=== PATIENT | male | born 1980 | race Caucasian/White ===

== ENCOUNTER 2018-01-15 08:44 | Inpatient (IN) | payer MEDICAID, OTHER, SELFPAY ==
[~2018-01-15] VITALS: Ht 185.4 cm; Wt 101.6 kg
[~2018-01-15 08:44] MED LIST: NOCURR
[2018-01-15] MEDS ORDERED: HALOPERIDOL LACTATE 5 MG/ML VIAL IM ONE (10:00)
[2018-01-15] MEDS ORDERED: ZOLPIDEM TARTRATE 10 MG TABLET PO PRN (10:00)
[2018-01-15] MEDS ORDERED: DiphenhydrAMINE HCL 50 MG/ML VIAL IM ONE (10:00)
[2018-01-15] MEDS ORDERED: LORazepam 2 MG/ML VIAL IM ONE (10:00)
[2018-01-15 10:52] LABS: BASOPHILS % (AUTO) 0.4 % (0.0-2.0); EOSINOPHILS % (AUTO) 0.3 % (1.0-6.0); HEMATOCRIT 44.7 % (41-53); HEMOGLOBIN 15.9 g/dL (13.5-17.5); LYMPHOCYTES # (AUTO) 1.9 K/uL (1.0-4.8); LYMPHOCYTES % (AUTO) 16.5 % (22.0-44.0); MEAN CORPUSCULAR HEMOGLOBIN 33.3 pg (26.0-34.0); MEAN CORPUSCULAR HGB CONC 35.6 G/dL (31.0-37.0); MEAN CORPUSCULAR VOLUME 94 fL (80-100); MONOCYTES # (AUTO) 1.2 K/uL (0.1-1.0); MONOCYTES % (AUTO) 10.6 % (2.0-9.0); NEUTROPHILS # (AUTO) 8.4 K/uL (1.8-7.7); NEUTROPHILS % (AUTO) 72.2 % (40.0-70.0); PLATELET COUNT (AUTO) 279 K/uL (150-450); RED BLOOD CELL COUNT(AUTO) 4.77 MIL/uL (4.50-5.90); RED CELL DISTRIBUTION WIDTH 13.8 % (11.5-14.5)
[2018-01-15 11:02] LABS: ANION GAP 8 mmol/L (8-16); CALCIUM, TOTAL 8.7 mg/dL (8.8-10.5); CARBON DIOXIDE 28 mmol/L (22-29); CHLORIDE 103 mmol/L (98-107); CREATININE 1.06 mg/dL (0.60-1.30); GLOMERULAR FILTR. RATE CALC > 60 mL/min (>60); GLUCOSE,RANDOM 101 mg/dL (70-110); POTASSIUM 4.2 mmol/L (3.5-5.1); SODIUM SERUM 139 mmol/L (136-145); UREA NITROGEN, BLOOD 13 mg/dL (7-18)
[2018-01-15 11:07] LABS: ALANINE AMINOTRANSFERASE 42 U/L (12-78); ALKALINE PHOSPHATASE 71 U/L (46-116); ASPARTATE AMINOTRANSFERASE 43 U/L (15-37); BILIRUBIN,TOTAL 1.4 mg/dL (0.1-1.0); TOTAL PROTEIN, SERUM 7.5 g/dL (6.4-8.2)
[2018-01-15 13:51] LABS: CHOL/HDL RATIO 2.8 (4.2-7.3); CHOLESTEROL 172 mg/dL (131-200); HDL CHOLESTEROL 62 mg/dL (40-60); LDL CHOL (CALC.) 103 mg/dL (0-130); TRIGLYCERIDES 37 mg/dL (15-150)
[2018-01-15 15:41] VITALS: BP 95/60
[2018-01-15 16:38] VITALS: BP 108/73
[2018-01-16 08:05] VITALS: BP 134/84
[2018-01-16] MEDS: RisperiDONE 2 MG TABLET PO SCH ×2 (13:20→16:41)
[2018-01-16 16:21] VITALS: BP 119/69
[2018-01-16] MEDS: LORazepam 2 MG TABLET PO PRN (16:42)
[2018-01-16] MEDS: HALOPERIDOL 5 MG TABLET PO PRN (16:42)
[2018-01-17 06:12] VITALS: BP 115/70
[2018-01-17 08:14] VITALS: BP 113/78
[2018-01-17] MEDS: RisperiDONE 2 MG TABLET PO SCH ×2 (08:51→16:30)
[2018-01-17] MEDS: LORazepam 2 MG TABLET PO PRN ×2 (08:51→16:30)
[2018-01-17] MEDS: HALOPERIDOL 5 MG TABLET PO PRN ×2 (09:21→16:30)
[2018-01-17 16:11] VITALS: BP 134/86
[2018-01-18 00:57] VITALS: BP 128/78
[2018-01-18 08:02] VITALS: BP 110/63
[2018-01-18] MEDS: RisperiDONE 2 MG TABLET PO SCH ×2 (08:21→16:59)
[2018-01-18 16:04] VITALS: BP_SYST 110; BP_SYST 119; BP_DIAS 63; BP_DIAS 83
[2018-01-19 06:23] VITALS: BP 130/94
[2018-01-19 08:24] VITALS: BP 121/79
[2018-01-19] MEDS: RisperiDONE 2 MG TABLET PO SCH (09:29)
[2018-01-19] MEDS: LORazepam 2 MG TABLET PO PRN (09:29)
[2018-01-19] MEDS: HALOPERIDOL 5 MG TABLET PO PRN (09:29)
[2018-01-19] MEDS ORDERED: RISP2TAB76 PO (09:44)
[2018-01-19 16:00] VITALS: BP 110/85
== END 2018-01-19 15:55 | disposition home or self-care (01) | DRG 750 ==
LOC: EMS 08:47 → B3A 12:01
PROVIDERS: ATTEND Psychiatry & Neurology Child & Adolescent Psychiatry
DX: F25.0 Schizoaffective disorder, bipolar type (principal); Z91.19 Patient's noncompliance with other medical treatment and regimen; R45.851 Suicidal ideations; F41.9 Anxiety disorder, unspecified; F17.210 Nicotine dependence, cigarettes, uncomplicated; R45.4 Irritability and anger; R45.1 Restlessness and agitation; F12.90 Cannabis use, unspecified, uncomplicated; Z79.899 Other long term (current) drug therapy; Z59.0 Homelessness
CPT/HCPCS: 96372; 99285; G0480; J1200; J1630; J2060

== ENCOUNTER 2018-09-24 14:46 | Inpatient (IN) | payer MEDICAID, OTHER ==
[~2018-09-24] VITALS: Ht 177.8 cm; Wt 87.1 kg
[~2018-09-24 14:46] MED LIST changes: +ARIP10TA8 PO; +ARIP15TA2 PO; +DIVA500T52 PO; +NALT50TA PO; +NALT50TA6 PO; -NOCURR
[2018-09-24] MEDS ORDERED: LORazepam 2 MG/ML VIAL IM ONE (15:15)
[2018-09-24] MEDS ORDERED: HALOPERIDOL LACTATE 5 MG/ML VIAL IM ONE (15:15)
[2018-09-24] MEDS ORDERED: DiphenhydrAMINE HCL 50 MG/ML VIAL IM ONE (15:15)
[2018-09-24 16:56] LABS: BASOPHILS % (AUTO) 0.5 % (0.0-2.0); EOSINOPHILS % (AUTO) 0.5 % (1.0-6.0); HEMATOCRIT 39.9 % (41-53); HEMOGLOBIN 13.7 g/dL (13.5-17.5); LYMPHOCYTES # (AUTO) 1.2 K/uL (1.0-4.8); LYMPHOCYTES % (AUTO) 13.2 % (22.0-44.0); MEAN CORPUSCULAR HEMOGLOBIN 33.1 pg (26.0-34.0); MEAN CORPUSCULAR HGB CONC 34.4 G/dL (31.0-37.0); MEAN CORPUSCULAR VOLUME 96 fL (80-100); MONOCYTES # (AUTO) 1.3 K/uL (0.1-1.0); NEUTROPHILS # (AUTO) 6.3 K/uL (1.8-7.7); NEUTROPHILS % (AUTO) 70.8 % (40.0-70.0); PLATELET COUNT (AUTO) 289 K/uL (150-450); RED BLOOD CELL COUNT(AUTO) 4.15 MIL/uL (4.50-5.90); RED CELL DISTRIBUTION WIDTH 12.9 % (11.5-14.5)
[2018-09-24 17:11] LABS: ANION GAP 11 mmol/L (8-16); CALCIUM, TOTAL 8.7 mg/dL (8.8-10.5); CARBON DIOXIDE 27 mmol/L (22-29); CHLORIDE 98 mmol/L (98-107); CREATININE 0.93 mg/dL (0.60-1.30); GLOMERULAR FILTR. RATE CALC > 60 mL/min (>60); GLUCOSE,RANDOM 93 mg/dL (70-110); POTASSIUM 3.7 mmol/L (3.5-5.1); SODIUM SERUM 136 mmol/L (136-145); UREA NITROGEN, BLOOD 22 mg/dL (7-18)
[2018-09-24 17:17] LABS: ALANINE AMINOTRANSFERASE 59 U/L (12-78); ALBUMIN 3.7 g/dL (3.4-5.0); ALKALINE PHOSPHATASE 81 U/L (46-116); ASPARTATE AMINOTRANSFERASE 62 U/L (15-37); BILIRUBIN,TOTAL 0.9 mg/dL (0.1-1.0); TOTAL PROTEIN, SERUM 6.9 g/dL (6.4-8.2)
[2018-09-24 21:05] VITALS: BP 113/88
[2018-09-24] MEDS ORDERED: ACETAMINOPHEN 325 MG TABLET PO PRN (21:30)
[2018-09-24] MEDS ORDERED: CloNIDine HCL 0.1 MG TABLET PO PRN (21:30)
[2018-09-24] MEDS ORDERED: IBUPROFEN 400 MG TABLET PO PRN (21:30)
[2018-09-24] MEDS ORDERED: LOPERAMIDE HCL 2 MG CAPSULE PO PRN (21:30)
[2018-09-24] MEDS ORDERED: PETROLATUM,WHITE 71 GM JELLY TP PRN (21:30)
[2018-09-24] MEDS ORDERED: DOCUSATE SODIUM 100 MG CAPSULE PO PRN (21:30)
[2018-09-24] MEDS ORDERED: GuaiFENesin/D-METHORPHAN [SUGAR-FREE] 200-20MG/10 ML SYRUP UDCUP PO PRN (21:30)
[2018-09-24] MEDS ORDERED: NICOTINE 14 MG/24 HOUR PATCH TD PRN (21:30)
[2018-09-24] MEDS ORDERED: ALBUTEROL SULFATE HFA 90 MCG/PUFF 8 GM INHALER IH PRN (21:30)
[2018-09-24] MEDS ORDERED: ONDANSETRON HCL 4 MG TABLET PO PRN (21:30)
[2018-09-24] MEDS ORDERED: MAG HYDROX/AL HYDROX/SIMETH ES 30 ML SUSPENSION UDCUP PO PRN (21:30)
[2018-09-24] MEDS ORDERED: MAGNESIUM HYDROXIDE SUSPENSION 30 ML UDCUP PO PRN (21:30)
[2018-09-25 03:01] VITALS: BP 123/83
[2018-09-25] MEDS ORDERED: DiphenhydrAMINE HCL 50 MG/ML VIAL IM ONE (05:45)
[2018-09-25] MEDS ORDERED: LORazepam 2 MG/ML VIAL IM ONE (05:45)
[2018-09-25] MEDS ORDERED: HALOPERIDOL LACTATE 5 MG/ML VIAL IM ONE (05:45)
[2018-09-25] MEDS: ARIPiprazole 10 MG TABLET PO SCH (15:21)
[2018-09-25] MEDS: NALTREXONE HCL 50 MG TABLET PO SCH (15:21)
[2018-09-25] MEDS: HALOPERIDOL 5 MG TABLET PO PRN (16:53)
[2018-09-25] MEDS: LORazepam 2 MG TABLET PO PRN (16:53)
[2018-09-25] MEDS: DIVALPROEX SODIUM 500 MG ER TABLET PO SCH (21:28)
[2018-09-26 01:04] VITALS: BP 113/83
[2018-09-26] MEDS: ZOLPIDEM TARTRATE 10 MG TABLET PO PRN ×2 (01:25→20:19)
[2018-09-26] MEDS: LORazepam 2 MG TABLET PO PRN ×3 (01:25→20:19)
[2018-09-26] MEDS: HALOPERIDOL 5 MG TABLET PO PRN (01:25)
[2018-09-26 08:03] VITALS: BP 119/67
[2018-09-26] MEDS: NALTREXONE HCL 50 MG TABLET PO SCH (08:54)
[2018-09-26] MEDS: ARIPiprazole 10 MG TABLET PO SCH (08:54)
[2018-09-26] MEDS ORDERED: HALOPERIDOL LACTATE 5 MG/ML VIAL ONE (15:32)
[2018-09-26] MEDS ORDERED: LORazepam 2 MG/ML VIAL ONE (15:32)
[2018-09-26] MEDS ORDERED: DiphenhydrAMINE HCL 50 MG/ML VIAL ONE (15:32)
[2018-09-26] MEDS ORDERED: DiphenhydrAMINE HCL 50 MG/ML VIAL IM ONE (15:45)
[2018-09-26] MEDS ORDERED: HALOPERIDOL LACTATE 5 MG/ML VIAL IM ONE (15:45)
[2018-09-26] MEDS ORDERED: LORazepam 2 MG/ML VIAL IM ONE (15:45)
[2018-09-26] MEDS: DIVALPROEX SODIUM 500 MG ER TABLET PO SCH (20:17)
[2018-09-27] MEDS: HALOPERIDOL 5 MG TABLET PO PRN ×3 (05:24→16:18)
[2018-09-27] MEDS: LORazepam 2 MG TABLET PO PRN ×3 (05:24→16:18)
[2018-09-27] MEDS: ARIPiprazole 10 MG TABLET PO SCH (08:43)
[2018-09-27] MEDS: NALTREXONE HCL 50 MG TABLET PO SCH (08:43)
[2018-09-27 08:58] VITALS: BP 133/68
[2018-09-27] MEDS ORDERED: DiphenhydrAMINE HCL 50 MG/ML VIAL IM ONE (10:15)
[2018-09-27] MEDS ORDERED: LORazepam 2 MG/ML VIAL IM ONE (10:15)
[2018-09-27] MEDS ORDERED: HALOPERIDOL LACTATE 5 MG/ML VIAL IM ONE (10:15)
[2018-09-27] MEDS: DIVALPROEX SODIUM 500 MG ER TABLET PO SCH (20:28)
[2018-09-28 00:22] VITALS: BP 125/79
[2018-09-28 08:23] VITALS: BP 132/85
[2018-09-28] MEDS: LORazepam 2 MG TABLET PO PRN (08:40)
[2018-09-28] MEDS: DIVALPROEX SODIUM 500 MG ER TABLET PO SCH ×2 (08:40→21:00)
[2018-09-28] MEDS: HALOPERIDOL 5 MG TABLET PO PRN (08:40)
[2018-09-28] MEDS: NALTREXONE HCL 50 MG TABLET PO SCH (08:40)
[2018-09-28] MEDS: ARIPiprazole 15 MG TABLET PO SCH (08:40)
[2018-09-28] MEDS ORDERED: LORazepam 2 MG/ML VIAL ONE (09:19)
[2018-09-28] MEDS ORDERED: DiphenhydrAMINE HCL 50 MG/ML VIAL ONE (09:20)
[2018-09-28] MEDS ORDERED: HALOPERIDOL LACTATE 5 MG/ML VIAL ONE (09:20)
[2018-09-28] MEDS ORDERED: LORazepam 2 MG/ML VIAL IM ONE (09:45)
[2018-09-28] MEDS ORDERED: DiphenhydrAMINE HCL 50 MG/ML VIAL IM ONE (09:45)
[2018-09-28] MEDS ORDERED: HALOPERIDOL LACTATE 5 MG/ML VIAL IM ONE (09:45)
[2018-09-29 08:17] VITALS: BP 129/81
[2018-09-29] MEDS: ARIPiprazole 15 MG TABLET PO SCH (08:57)
[2018-09-29] MEDS: DIVALPROEX SODIUM 500 MG ER TABLET PO SCH ×2 (08:58→20:25)
[2018-09-29] MEDS: NALTREXONE HCL 50 MG TABLET PO SCH (08:58)
[2018-09-29 16:00] VITALS: BP 131/81
[2018-09-29] MEDS: HALOPERIDOL 5 MG TABLET PO PRN (16:28)
[2018-09-29] MEDS: LORazepam 2 MG TABLET PO PRN (16:28)
[2018-09-30 06:19] VITALS: BP 117/65
[2018-09-30 08:17] VITALS: BP 121/68
[2018-09-30] MEDS: NALTREXONE HCL 50 MG TABLET PO SCH (09:15)
[2018-09-30] MEDS: DIVALPROEX SODIUM 500 MG ER TABLET PO SCH ×2 (09:15→20:38)
[2018-09-30] MEDS: ARIPiprazole 15 MG TABLET PO SCH (09:15)
[2018-09-30] MEDS: HALOPERIDOL 5 MG TABLET PO PRN ×2 (09:15→17:01)
[2018-09-30] MEDS: LORazepam 2 MG TABLET PO PRN ×2 (09:15→17:01)
[2018-10-01] MEDS: DIVALPROEX SODIUM 500 MG ER TABLET PO SCH (08:33)
[2018-10-01] MEDS: ARIPiprazole 15 MG TABLET PO SCH (08:33)
[2018-10-01] MEDS: NALTREXONE HCL 50 MG TABLET PO SCH (08:33)
[2018-10-01] MEDS ORDERED: ARIPiprazole LAUROXIL ER SUSPENSION 882 MG/3.2 ML SYRINGE IM SCH (09:00)
[2018-10-01 09:53] VITALS: BP 132/87
[2018-10-01] MEDS ORDERED: ARIP15TA2 PO (12:13)
[2018-10-01] MEDS ORDERED: DIVA500T52 PO ×2 (12:13)
[2018-10-01] MEDS ORDERED: NALT50TA6 PO (12:14)
== END 2018-10-01 12:47 | disposition home or self-care (01) | DRG 753 ==
LOC: EMS 14:48 → B3A 18:00
PROVIDERS: ADMIT Psychiatry & Neurology Psychiatry; ATTEND Psychiatry & Neurology Psychiatry
DX: F31.2 Bipolar disorder, current episode manic severe with psychotic features (principal); Z91.14 Patient's other noncompliance with medication regimen; F10.10 Alcohol abuse, uncomplicated; F17.200 Nicotine dependence, unspecified, uncomplicated; F19.10 Other psychoactive substance abuse, uncomplicated; F41.9 Anxiety disorder, unspecified; I10 Essential (primary) hypertension; R74.0 Nonspecific elevation of levels of transaminase and lactic acid dehydrogenase [LDH]; Z71.6 Tobacco abuse counseling; Z59.0 Homelessness
CPT/HCPCS: 96372; G0480; J1200; J1630; J2060